=== PATIENT | male | born 1975 | race Caucasian/White ===

== ENCOUNTER 2018-05-11 07:50 | Observation (INO) ==
[2018-05-11] MEDS ORDERED: Aspirin 81 MG TAB.CHEW PO ONE (07:56)
[2018-05-11] MEDS ORDERED: 0.9 % Sodium Chloride 500 ML IVC ONE (07:56)
--- NOTE | 2018-05-11 08:02 | Emergency Department Note ---
Disposition Clinical Impression: Chest pain Qualifiers: Chest pain type: unspecified Qualified Code(s): R07.9 - Chest pain, unspecified Disposition: Admitted As Inpatient Referrals: Richmond Agurire MD [Primary Care Provider] - Chest Pain HPI - General Stated Complaint: CP Time Seen by Provider: 05/11/18 07:51 Source: patient Mode of arrival: ambulatory Limitations: no limitations Vital Signs Reviewed: Yes Nursing Notes Reviewed: Yes - History of Present Illness HPI Narrative: 42-year-old male with history of hypertension, diabetes, pericarditis in the past presents for evaluation of chest pain. Patient states symptom onset was approximately 3:00 this morning. States the pain woke him up from sleep. Noted to be a tightness across the anterior part of his chest with radiation to his back. Patient denies any neck or arm pain. States it is similar pain from when he had pericarditis 4 years ago of unknown etiology. Patient for some shortness of breath and some diaphoresis but no nausea or vomiting. Patient denies any abdominal pain. Reports no fevers does have a nonproductive cough. Patient states pain is not worse with deep inspiration or position. Patient took an aspirin prior to arrival. Patient denies any history of blood clots in his lungs are's legs. Patient denies any history of recent travel. Denies any active cancers. Denies any history of heart attacks. - Related Data Home Medications Medication Instructions Recorded Confirmed Dextroamphetamine/Amphetamine 30 mg PO BID 05/11/18 05/11/18 [Adderall 30 mg Tablet] Emtricitabine/Tenofovir [Truvada 1 tab PO DAILY 05/11/18 05/11/18 200 mg-300 mg Tablet] Ergocalciferol (VITAMIN D2) 50,000 unit PO 2XW 05/11/18 05/11/18 [Vitamin D2] Escitalopram [Lexapro] 10 mg PO DAILY 05/11/18 05/11/18 Esomeprazole Magnesium [Nexium] 40 mg PO DAILY 05/11/18 05/11/18 Levothyroxine Sodium [Levoxyl] 100 mcg PO DAILY 05/11/18 05/11/18 Liraglutide [Victoza 2-Rolando] 1.2 mg SQ DAILY 05/11/18 05/11/18 Lisinopril [Zestril] 20 mg PO DAILY 05/11/18 05/11/18 Metformin HCl [Glucophage Xr] 750 mg PO QPM 05/11/18 05/11/18 Oxycodone HCl/Acetaminophen 1 tab PO Q6H PRN 05/11/18 05/11/18 [Percocet 10-325 mg Tablet] Testosterone Cypionate 100 mg IM Q2W 05/11/18 05/11/18 [Depo-Testosterone] Tizanidine HCl 4 mg PO DAILY 05/11/18 05/11/18 Zolpidem [Ambien] 10 mg PO HS PRN 05/11/18 05/11/18 Allergies Allergy/AdvReac Type Severity Reaction Status Date / Time Oxycodone [From OxyContin] AdvReac makes skin Verified 05/11/18 09:38 crawl All systems ED: reviewed and negative except as stated. Constitutional: Denies: fever Cardiovascular: Reports: chest pain Respiratory: Reports: cough, dyspnea Gastrointestinal: Denies: nausea, vomiting Physical Exam - General Limitations: no limitations General appearance: alert, in no apparent distress - Head Head exam: atraumatic, normocephalic, normal inspection - Eye Eye exam: Present: normal appearance, PERRL, EOMI - ENT ENT exam: normal exam, normal oropharynx, mucous membranes moist - Neck Neck exam: Present: normal inspection - Chest Chest inspection: Present: normal inspection, symmetric chest wall rise - Respiratory Respiratory exam: Present: normal lung sounds bilaterally. Absent: respiratory distress - Cardiovascular Cardiovascular exam: Present: regular rate, normal rhythm. Absent: systolic murmur - Abdominal Exam Abdominal exam: Present: soft, Non-Tender - Extremities Exam Extremities exam: Present: normal inspection, pedal edema (trace) - Back Exam Back exam: Present: normal inspection - Neurological Exam Neurological exam: Present: alert, oriented X3 - Skin Skin exam: Present: warm, dry, intact, normal color Course Course Narrative: Patient seen and examined. Patient complaining of chest pain. Does have risk factors for ACS. Patient will get cardiopulmonary evaluation EKG, chest x-ray troponin. Patient also get basic labs. - Reevaluation(s) Reevaluation #1: Bedside ultrasound shows trace pericardial fluid. Time: 08:14 Reevaluation #2: Pain improved after nitroglycerin Time: 08:47 Reevaluation #3: Patient seen and examined. Patient denies any need for pain medication. States he is feeling better. Patient does have chest pain associated back pain. Awaiting CT of the chest. Time: 08:56 Vital Signs Temperature 99.0 F 05/11/18 08:04 Pulse Rate 72 05/11/18 08:04 Respiratory Rate 18 05/11/18 08:04 Blood Pressure 127/82 05/11/18 08:04 O2 Sat by Pulse Oximetry 94 05/11/18 08:04 Temperature 99.0 F 05/11/18 08:04 Pulse Rate 76 05/11/18 09:38 Respiratory Rate 18 05/11/18 09:38 Blood Pressure 119/75 05/11/18 09:38 O2 Sat by Pulse Oximetry 97 05/11/18 09:38 Oxygen Delivery Oxygen Delivery Room Air Chest Pain - MDM Narrative Medical decision making narrative: 42-year-old male who presents for evaluation of chest pain. During the course the patient's ED evaluation the patient had no EKG changes however the patient does have risk factors for ACS and did respond to nitroglycerin. Patient also has a history of pericarditis with similar pain however cannot necessarily rule out ACS. Given the patient's complaint of dyspnea as well as back pain a CT of the chest was obtained. Patient would benefit from inpatient admission and further evaluation of the etiology of the patient's chest pain. Review the patient's medical records shows the patient has not had any recent provocative testing or evaluation of ACS. - Lab Data Result diagrams: 05/11/18 08:24 05/11/18 08:24 Lab Results 05/11/18 05/11/18 05/11/18 Range/Units 08:24 08:24 08:24 WBC 9.7 (4.3-11.1) K/mcL RBC 5.44 (4.19-5.50) M/mcL Hgb 16.5 (12.9-16.9) g/dL Hct 48.4 (37.5-50.1) % MCV 89.0 (83.0-100.0) fL MCH 30.3 (28.0-33.3) pg MCHC 34.1 (31.6-35.5) g/dL RDW 11.9 (11.5-14.5) % Plt Count 193 (140-400) K/mcL MPV 11.2 (9.4-12.4) fL Immature Gran % 0.3 (0-4) % Seg Neutrophils % 55.4 % Lymphocytes % 36.7 % Monocytes % 6.0 % Eosinophils % 1.2 % Basophils % 0.4 % Neutrophils # 5.4 (1.6-8.9) K/mcL Lymphocytes # 3.6 (0.6-4.6) K/mcL Monocytes # 0.6 (0.0-1.3) K/mcL Eosinophils # 0.1 (0.0-0.6) K/mcL Basophils # 0.0 (0.0-0.2) K/mcL PT 9.8 (9.4-12.1) Seconds INR 0.9 Sodium (136-145) mEq/L Potassium (3.5-5.1) mEq/L Chloride (98-107) mEq/L Carbon Dioxide (23-29) mEq/L BUN (6-20) mg/dL Creatinine (0.70-1.30) mg/dL Est GFR ( Amer) (> 60) Est GFR (Non-Af Amer) (> 60) BUN/Creatinine Ratio (6-26) Glucose (70-105) mg/dL Calculated Osmolality (280-300) Calcium (8.6-10.3) mg/dL Troponin I (< 0.04) ng/mL B-Natriuretic Peptide 10 (Less than 100) pg/mL Lipase (11-82) Units/L // Range/Units 08:24 WBC (4.3-11.1) K/mcL RBC (4.19-5.50) M/mcL Hgb (12.9-16.9) g/dL Hct (37.5-50.1) % MCV (83.0-100.0) fL MCH (28.0-33.3) pg MCHC (31.6-35.5) g/dL RDW (11.5-14.5) % Plt Count (140-400) K/mcL MPV (9.4-12.4) fL Immature Gran % (0-4) % Seg Neutrophils % % Lymphocytes % % Monocytes % % Eosinophils % % Basophils % % Neutrophils # (1.6-8.9) K/mcL Lymphocytes # (0.6-4.6) K/mcL Monocytes # (0.0-1.3) K/mcL Eosinophils # (0.0-0.6) K/mcL Basophils # (0.0-0.2) K/mcL PT (9.4-12.1) Seconds INR Sodium 139 (136-145) mEq/L Potassium 4.0 (3.5-5.1) mEq/L Chloride 105 (98-107) mEq/L Carbon Dioxide 24 (23-29) mEq/L BUN 25 H (6-20) mg/dL Creatinine 0.86 (0.70-1.30) mg/dL Est GFR ( Amer) > 60 (> 60) Est GFR (Non-Af Amer) > 60 (> 60) BUN/Creatinine Ratio 29 H (6-26) Glucose 146 H (70-105) mg/dL Calculated Osmolality 295 (280-300) Calcium 9.2 (8.6-10.3) mg/dL Troponin I < 0.03 (< 0.04) ng/mL B-Natriuretic Peptide (Less than 100) pg/mL Lipase 24 (11-82) Units/L - Radiology Data Radiology results reviewed: Yes I reviewed the patient's radiology results. - EKG Data EKG attestation: Yes I reviewed and interpreted this EKG. EKG shows normal: sinus rhythm Rate: normal Rhythm: NSR [place]/QRS: normal Q waves: aVR Interpretation: no acute changes, unchanged when compared to prior tracing (date ) (05/2015) Heart Score - Score History: Highly Suspicious EKG: Normal Age: Less than 45 Risk Factors: Equal/Greater than 3 risk factor or history of atherosclerotic disease Troponin: Less than normal limit HEART Score Total: 4 S.B.A.RJennifer - S.B.A.RJennifer Situation: Demographics Background: Presenting Complaint Assessment: Vital Signs, Course and respsone to treatment, Patient/Family Expectation Recommendation: Barrier(s) to disposition, Recommendation based on pending studies, treatments, or consults S.B.A.RJennifer Report Given to: Dr. Joel [email or web address].ANgozi Repor Time: 10:05
[2018-05-11] MEDS ORDERED: Isovue-370 500 ML INFUS..BTL IV ONE ×2 (08:21→09:37)
[2018-05-11] MEDS: Nitroglycerin 0.4 MG TAB.SUBL SL ONE ×2 (08:28→08:40)
[2018-05-11 08:53] LABS: Basophils % 0.4 %; Eosinophils # 0.1 K/mcL (0.0-0.6); Eosinophils % 1.2 %; Hematocrit 48.4 % (37.5-50.1); Hemoglobin 16.5 g/dL (12.9-16.9); Immature Granulocytes % 0.3 % (0-4); Lymphocytes # 3.6 K/mcL (0.6-4.6); Lymphocytes % 36.7 %; Mean Corpuscular HGB Conc 34.1 g/dL (31.6-35.5); Mean Corpuscular Hemoglobin 30.3 pg (28.0-33.3); Mean Platelet Volume 11.2 fL (9.4-12.4); Monocytes # 0.6 K/mcL (0.0-1.3); Neutrophils # 5.4 K/mcL (1.6-8.9); Platelet Count 193 K/mcL (140-400); Red Blood Count 5.44 M/mcL (4.19-5.50); Red Cell Distribution Width 11.9 % (11.5-14.5); Segmented Neutrophils % 55.4 %
[2018-05-11 09:03] LABS: INR 0.9; Prothrombin Time 9.8 Seconds (9.4-12.1)
[2018-05-11 09:15] LABS: BUN/Creatinine Ratio 29 (6-26); Blood Urea Nitrogen 25 mg/dL (6-20); Calcium 9.2 mg/dL (8.6-10.3); Carbon Dioxide 24 mEq/L (23-29); Chloride 105 mEq/L (98-107); Glucose 146 mg/dL (70-105); Lipase 24 Units/L (11-82); Osmolality,Calculated 295 (280-300); Sodium 139 mEq/L (136-145); Troponin I < 0.03 ng/mL (< 0.04); eGFR For African Americans > 60 (> 60); eGFR For Non-African Americans > 60 (> 60)
--- NOTE | 2018-05-11 09:47 | Emergency Department Note ---
Disposition Clinical Impression: Chest pain Qualifiers: Chest pain type: unspecified Qualified Code(s): R07.9 - Chest pain, unspecified Disposition: Admitted As Inpatient Referrals: Richmond Aguirre MD [Primary Care Provider] - General Adult [facility] - General Chief complaint: ED Chest Pain Stated complaint: CP Time Seen by Provider: 05/11/18 07:51 Source: patient Mode of arrival: ambulatory Limitations: no limitations - History of Present Illness Pain Scale: 5 - Related Data Home Medications Medication Instructions Recorded Confirmed Dextroamphetamine/Amphetamine 30 mg PO BID 05/11/18 05/11/18 [Adderall 30 mg Tablet] Emtricitabine/Tenofovir [Truvada 1 tab PO DAILY 05/11/18 05/11/18 200 mg-300 mg Tablet] Ergocalciferol (VITAMIN D2) 50,000 unit PO 2XW 05/11/18 05/11/18 [Vitamin D2] Escitalopram [Lexapro] 10 mg PO DAILY 05/11/18 05/11/18 Esomeprazole Magnesium [Nexium] 40 mg PO DAILY 05/11/18 05/11/18 Levothyroxine Sodium [Levoxyl] 100 mcg PO DAILY 05/11/18 05/11/18 Liraglutide [Victoza 2-Rolando] 1.2 mg SQ DAILY 05/11/18 05/11/18 Lisinopril [Zestril] 20 mg PO DAILY 05/11/18 05/11/18 Metformin HCl [Glucophage Xr] 750 mg PO QPM 05/11/18 05/11/18 Oxycodone HCl/Acetaminophen 1 tab PO Q6H PRN 05/11/18 05/11/18 [Percocet 10-325 mg Tablet] Testosterone Cypionate 100 mg IM Q2W 05/11/18 05/11/18 [Depo-Testosterone] Tizanidine HCl 4 mg PO DAILY 05/11/18 05/11/18 Zolpidem [Ambien] 10 mg PO HS PRN 05/11/18 05/11/18 Allergies Allergy/AdvReac Type Severity Reaction Status Date / Time Oxycodone [From OxyContin] AdvReac makes skin Verified 05/11/18 09:38 crawl Constitutional: Denies: fever Cardiovascular: Reports: chest pain Respiratory: Reports: cough, dyspnea Gastrointestinal: Denies: nausea, vomiting Past Medical History - Past Medical History Medical history: Reports: diabetes, hypertension Psychiatric history: Reports: no psych history - Social History Smoking Status: Never smoker Alcohol use: Reports: none Drug use: Reports: none Physical Exam - General Limitations: no limitations General appearance: alert, in no apparent distress Course Vital Signs Temperature 99.0 F 05/11/18 08:04 Pulse Rate 72 05/11/18 08:04 Respiratory Rate 18 05/11/18 08:04 Blood Pressure 127/82 05/11/18 08:04 O2 Sat by Pulse Oximetry 94 05/11/18 08:04 Temperature 99.0 F 05/11/18 08:04 Pulse Rate 76 05/11/18 09:38 Respiratory Rate 18 05/11/18 09:38 Blood Pressure 119/75 05/11/18 09:38 O2 Sat by Pulse Oximetry 97 05/11/18 09:38 Oxygen Delivery Oxygen Delivery Room Air Medical Decision Making - Lab Data Result diagrams: 05/11/18 08:24 05/11/18 08:24 Lab Results 05/11/18 05/11/18 05/11/18 Range/Units 08:24 08:24 08:24 WBC 9.7 (4.3-11.1) K/mcL RBC 5.44 (4.19-5.50) M/mcL Hgb 16.5 (12.9-16.9) g/dL Hct 48.4 (37.5-50.1) % MCV 89.0 (83.0-100.0) fL MCH 30.3 (28.0-33.3) pg MCHC 34.1 (31.6-35.5) g/dL RDW 11.9 (11.5-14.5) % Plt Count 193 (140-400) K/mcL MPV 11.2 (9.4-12.4) fL Immature Gran % 0.3 (0-4) % Seg Neutrophils % 55.4 % Lymphocytes % 36.7 % Monocytes % 6.0 % Eosinophils % 1.2 % Basophils % 0.4 % Neutrophils # 5.4 (1.6-8.9) K/mcL Lymphocytes # 3.6 (0.6-4.6) K/mcL Monocytes # 0.6 (0.0-1.3) K/mcL Eosinophils # 0.1 (0.0-0.6) K/mcL Basophils # 0.0 (0.0-0.2) K/mcL PT 9.8 (9.4-12.1) Seconds INR 0.9 Sodium (136-145) mEq/L Potassium (3.5-5.1) mEq/L Chloride (98-107) mEq/L Carbon Dioxide (23-29) mEq/L BUN (6-20) mg/dL Creatinine (0.70-1.30) mg/dL Est GFR ( Amer) (> 60) Est GFR (Non-Af Amer) (> 60) BUN/Creatinine Ratio (6-26) Glucose (70-105) mg/dL Calculated Osmolality (280-300) Calcium (8.6-10.3) mg/dL Troponin I (< 0.04) ng/mL B-Natriuretic Peptide 10 (Less than 100) pg/mL Lipase (11-82) Units/L 07//18 Range/Units 08:24 WBC (4.3-11.1) K/mcL RBC (4.19-5.50) M/mcL Hgb (12.9-16.9) g/dL Hct (37.5-50.1) % MCV (83.0-100.0) fL MCH (28.0-33.3) pg MCHC (31.6-35.5) g/dL RDW (11.5-14.5) % Plt Count (140-400) K/mcL MPV (9.4-12.4) fL Immature Gran % (0-4) % Seg Neutrophils % % Lymphocytes % % Monocytes % % Eosinophils % % Basophils % % Neutrophils # (1.6-8.9) K/mcL Lymphocytes # (0.6-4.6) K/mcL Monocytes # (0.0-1.3) K/mcL Eosinophils # (0.0-0.6) K/mcL Basophils # (0.0-0.2) K/mcL PT (9.4-12.1) Seconds INR Sodium 139 (136-145) mEq/L Potassium 4.0 (3.5-5.1) mEq/L Chloride 105 (98-107) mEq/L Carbon Dioxide 24 (23-29) mEq/L BUN 25 H (6-20) mg/dL Creatinine 0.86 (0.70-1.30) mg/dL Est GFR ( Amer) > 60 (> 60) Est GFR (Non-Af Amer) > 60 (> 60) BUN/Creatinine Ratio 29 H (6-26) Glucose 146 H (70-105) mg/dL Calculated Osmolality 295 (280-300) Calcium 9.2 (8.6-10.3) mg/dL Troponin I < 0.03 (< 0.04) ng/mL B-Natriuretic Peptide (Less than 100) pg/mL Lipase 24 (11-82) Units/L Attestation Statement - Attestation Attestation: I examined this patient and my medical decision-making was reviewed with the Resident Physician. I agree with the documented findings, disposition and treatment plan as described except to the extent set forth below. 42 year old male presntse to the ED with complanits of chest pain midsternal simliar to his episodes of pericarditis in the past. Swapna has mulitple reisk factors for ACS. WEw ill do a cardiopulmonary workup with CTA to rule out PE and US for pericarditis workup and then olive admit to medicine.
[2018-05-11] MEDS ORDERED: Naloxone 0.4 MG/ML INJ IVP PRN (10:04)
[2018-05-11] MEDS ORDERED: *HR* Dextrose 50 % in Water (Syg) 50 ML SYRINGE IVP PRN (10:15)
[2018-05-11] MEDS ORDERED: Dextrose Gel 15 GM/37.5 ML TUBE PO PRN ×2 (10:15)
[2018-05-11] MEDS ORDERED: NON-FORMULARY MEDICATION 1 EACH EACH (Testosterone Cypionate [Depo-Testosterone] 100 MG) IM SCH (10:15)
[2018-05-11] MEDS ORDERED: D5% in Water 1,000 ML IVC PRN (10:15)
[2018-05-11 10:25] LABS: Chol/HDL Ratio 5.6 (0-4.9); Cholesterol 175 mg/dL (< 200); HDL Cholesterol 31 mg/dL (40-59); LDL Cholesterol,Calculated 104 mg/dL (0-99); Triglycerides 200 mg/dL (< 150)
[2018-05-11] MEDS ORDERED: OXYCODONE Oral CONC 10 MG/0.5 ML ORAL.SYG SL PRN (11:01)
--- NOTE | 2018-05-11 11:06 | Internal Med History&Physical ---
Date of Encounter: 05/11/18 Time of Encounter: 11:00 Internal Medicine - H&P: HPI Chief complaint: Chest pain History of present illness: Mr. 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 Patient describes the chest pain as a tightness that is midsternal aggaravated by changes in position and radiating to the back. Pain was mildly relieved by nitroglycerin in the ER. he denies any fevers, chills. He says pain was 8/10 when he arrived but is now 5/10. He had a father who ad a heart attack at age 46. CXR [address] angio done in the Er showed no acute abnormality Past Med Surg Social Fam HX - Past Medical History Medical history: diabetes, hypertension Psychiatric history: no psych history - Social History Smoking Status: Never smoker Alcohol use: none Drug use: none - Family History Mother Living Status: Hx Family Cancer: Yes Hx Family Endocrine Disorder: Yes (diabetes) Father Hx Family Cardiac Disorders: Yes Hx Family Endocrine Disorder: Yes (diabetes) Internal Medicine - H&P: Meds Dextroamphetamine/Amphetamine [Adderall 30 mg Tablet] 30 mg PO BID 05/11/18 [ History] Emtricitabine/Tenofovir [Truvada 200 mg-300 mg Tablet] 1 tab PO DAILY 05/11/18 [ History] Ergocalciferol (VITAMIN D2) [Vitamin D2] 50,000 unit PO 2XW 05/11/18 [History] Escitalopram [Lexapro] 10 mg PO DAILY 05/11/18 [History] Esomeprazole Magnesium [Nexium] 40 mg PO DAILY 05/11/18 [History] Levothyroxine Sodium [Levoxyl] 100 mcg PO DAILY 05/11/18 [History] Liraglutide [Victoza 2-Rolando] 1.2 mg SQ DAILY 05/11/18 [History] Lisinopril [Zestril] 20 mg PO DAILY 05/11/18 [History] Metformin HCl [Glucophage Xr] 750 mg PO QPM 05/11/18 [History] Oxycodone HCl/Acetaminophen [Percocet 10-325 mg Tablet] 1 tab PO Q6H PRN [History] Testosterone Cypionate [Depo-Testosterone] 100 mg IM Q2W 05/11/18 [History] Tizanidine HCl 4 mg PO DAILY 05/11/18 [History] Zolpidem [Ambien] 10 mg PO HS PRN 05/11/18 [History] 3 Allergy/AdvReac Type Severity Reaction Status Date / Time Oxycodone [From OxyContin] AdvReac makes skin Verified 05/11/18 09:38 crawl All Systems PM: A 10-system review of systems was performed and is negative for pertinent findings except as documented above in the HPI. - Constitutional Constitutional: no chills, no fever(s), no night sweats - EENT Eyes: no change in vision, no discharge, no pain, no photophobia Ears: no ear discharge, no ear pain, no tinnitus Nose, mouth and throat: no dysphagia, no nasal discharge, no neck pain, no sore throat - Cardiovascular Cardiovascular ROS IM: chest pain, no diaphoresis, no dyspnea, no lightheadedness, no palpitations, no syncope - Respiratory Respiratory: no cough, no dyspnea, no wheezing, no excessive phlegm production - Gastrointestinal Gastrointestinal: no abdominal pain, no diarrhea, no hematemesis, no hematochezia, no melena, no nausea, no vomiting - Musculoskeletal Musculoskeletal ROS IM: no numbness, no tingling - Integumentary Integumentary IM: no rash, no unusual bruising - Neurological Neurological ROS: no confusion, no convulsions, no focal weakness, no numbness, no tingling, no tremor(s) - Hematologic/Lymphatic Hematologic/Lymphatic: no easy bruising - Constitutional Vitals: Temp Pulse Resp BP Pulse Ox 99.0 F 76 18 116/63 97 05/11/18 08:04 05/11/18 09:38 05/11/18 10:23 05/11/18 10:23 05/11/18 09:38 Exam: Morbidly obese - Head Head exam: Present: atraumatic, normocephalic - Eye Eye exam: Present: PERRL, conjuntiva pink, sclera anicteric Pupils: Present: PERRL - Neck Neck exam general surgery: Present: supple, trachea midline. Absent: lymphadenopathy - Respiratory Respiratory exam: Present: CTAB. Absent: accessory muscle use, rales, rhonchi, wheezes - Cardiovascular Cardiovascular exam: Present: RRR, +S1, +S2. Absent: diastolic murmur, gallop, rubs, systolic murmur - GI/Abdominal GI/Abdominal exam: Present: normal bowel sounds, soft, no peritoneal signs. Absent: distended, tenderness - Extremities Exam Extremities exam: Present: warm, radial pulses palpable and symmetrical. Absent : calf tenderness, cyanotic, pedal edema - Neurological Exam Neurological exam: Present: CN II-XII intact, oriented X3, no focal deficits. Absent: pronater drift, facial droop, speech deficit - Skin Skin exam: Present: dry, intact Internal Med - H&P Results - Labs CBC & Chem 7: 05/11/18 08:24 05/11/18 08:24 - Assessment and plan (1) Chest pain Current Visit: Yes Status: Acute Assessment and plan: Chest pain r/o MS. trend troponins. Obtain 2d echo and stress test. pt has multiple risk factors including diabetes, htn, obesity, dyslipidemia, family history Qualifiers: Chest pain type: unspecified Qualified Code(s): R07.9 - Chest pain, unspecified (2) Acute pericarditis Current Visit: Yes Status: Acute Assessment and plan: Query pericarditis. EKG is not classic for pericarditis, but patient says pain is similar to previous episodes of pericarditis. Start on colchicine and ibuprofen. F/U echo Qualifiers: Qualified Code(s): I30.9 - Acute pericarditis, unspecified (3) HIV (human immunodeficiency virus infection) Current Visit: Yes Status: Acute Assessment and plan: Continue truvada (4) Diabetes Current Visit: Yes Status: Acute Assessment and plan: Continue insulin Qualifiers: Qualified Code(s): E11.9 - Type 2 diabetes mellitus without complications (5) Hypertension Current Visit: Yes Status: Acute Assessment and plan: Continue lisnopril Qualifiers: Qualified Code(s): I10 - Essential (primary) hypertension (6) DVT prophylaxis Current Visit: Yes Status: Acute Assessment and plan: sc heparin - Time Spent With Patient Total time spent is greater than 50% in coordination of care (as documented) at patient's floor/unit and/or counseling patient:
[2018-05-11] MEDS: Insulin LISPRO 300 UNITS/3 ML VIAL SQ SCH ×2 (11:36→17:15)
[2018-05-11] MEDS: Ibuprofen 600 MG TABLET PO SCH ×2 (12:17→17:46)
[2018-05-11] MEDS: Colchicine 0.6 MG TABLET PO SCH ×2 (12:24→20:48)
[2018-05-11] MEDS: *HR* Heparin 5,000 UNIT/ML VIAL SQ SCH (17:46)
[2018-05-11] MEDS ORDERED: *HR* Heparin 5,000 UNIT/ML VIAL SQ SCH (18:00)
[2018-05-11] MEDS: tiZANidine 4 MG TABLET PO SCH (20:48)
[2018-05-11] MEDS: *HR* OxyCODONE/APAP 10/325 TABLET PO PRN (20:52)
[2018-05-12 01:44] LABS: Basophils % 0.4 %; Eosinophils # 0.2 K/mcL (0.0-0.6); Eosinophils % 1.7 %; Hematocrit 44.1 % (37.5-50.1); Immature Granulocytes % 0.9 % (0-4); Immature Platelets 7.8 % (1.1-6.1); Lymphocytes # 4.2 K/mcL (0.6-4.6); Lymphocytes % 46.3 %; Mean Corpuscular Hemoglobin 30.6 pg (28.0-33.3); Monocytes # 0.6 K/mcL (0.0-1.3); Monocytes % 6.8 %; Neutrophils # 3.9 K/mcL (1.6-8.9); Platelet Count 190 K/mcL (140-400); Red Cell Distribution Width 11.9 % (11.5-14.5); Segmented Neutrophils % 43.9 %
[2018-05-12 02:10] LABS: BUN/Creatinine Ratio 26 (6-26); Blood Urea Nitrogen 24 mg/dL (6-20); Calcium 8.9 mg/dL (8.6-10.3); Carbon Dioxide 28 mEq/L (23-29); Chloride 104 mEq/L (98-107); Glucose 117 mg/dL (70-105); Osmolality,Calculated 289 (280-300); Phosphorous 4.1 mg/dL (2.7-4.5); Potassium 4.3 mEq/L (3.5-5.1); Sodium 137 mEq/L (136-145); eGFR For African Americans > 60 (> 60); eGFR For Non-African Americans > 60 (> 60)
[2018-05-12] MEDS: *HR* Heparin 5,000 UNIT/ML VIAL SQ SCH ×2 (05:24→18:07)
[2018-05-12] MEDS: Insulin LISPRO 300 UNITS/3 ML VIAL SQ SCH ×4 (07:52→22:59)
[2018-05-12] MEDS: Ibuprofen 600 MG TABLET PO SCH (08:03)
[2018-05-12] MEDS: Colchicine 0.6 MG TABLET PO SCH (08:03)
[2018-05-12] MEDS: Lisinopril 20 MG TABLET PO SCH (08:03)
[2018-05-12] MEDS: Aspirin 81 MG TAB.CHEW PO SCH (08:03)
[2018-05-12] MEDS ORDERED: tiZANidine 4 MG TABLET PO SCH (09:00)
[2018-05-12] MEDS: (Liraglutide [Victoza 2-Pak] 1.2 MG) SQ SCH (09:34)
[2018-05-12] MEDS ORDERED: Mag Hydrox/Al Hydrox/Simeth 30 ML UDC PO PRN (09:54)
--- NOTE | 2018-05-12 10:05 | Internal Med Progress Note ---
Date of Encounter: 05/12/18 Time of Encounter: 09:59 - Assessment and plan (1) Chest pain Current Visit: Yes Status: Acute Assessment and plan: atypical, negative trop, TTE did not show pericardial effusion.CTA is negative for PE pending stress test due to multiple risk factors Qualifiers: Chest pain type: unspecified Qualified Code(s): R07.9 - Chest pain, unspecified (2) Hyperlipidemia Current Visit: Yes Status: Acute Qualifiers: Hyperlipidemia type: mixed hyperlipidemia Qualified Code(s): E78.2 - Mixed hyperlipidemia (3) Morbid obesity Current Visit: Yes Status: Chronic Assessment and plan: life style modification discussed (4) Acute pericarditis Current Visit: Yes Status: Acute Assessment and plan: ruled out, TTE did not show pericardial effusion, Qualifiers: Qualified Code(s): I30.9 - Acute pericarditis, unspecified (5) HIV (human immunodeficiency virus infection) Current Visit: Yes Status: Chronic Assessment and plan: continue truvada (6) Diabetes Current Visit: Yes Status: Chronic Qualifiers: Diabetes mellitus type: type 2 Diabetes mellitus senior living insulin 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 Diabetes mellitus complication status: without complication Qualified Code(s): E11.9 - Type 2 diabetes mellitus without complications; Z79.4 - termite inspector (current) use of insulin (7) Hypertension Current Visit: Yes Status: Chronic Assessment and plan: continue lisinopril Qualifiers: Hypertension type: essential hypertension Qualified Code(s): I10 - Essential (primary) hypertension (8) DVT prophylaxis Current Visit: Yes Status: Acute Assessment and plan: heparin SC - Time Spent With Patient Total time spent is greater than 50% in coordination of care (as documented) at patient's floor/unit and/or counseling patient: 25 - 35 minutes - Subjective Interval history: Mr. 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 Patient describes the chest pain as a tightness that is midsternal aggaravated by changes in position and radiating to the back. Pain was mildly relieved by nitroglycerin in the ER. he denies any fevers, chills. He says pain was 8/10 when he was in ER. He had a father who ad a heart attack at age 46. CXR [address] angio done in the Er showed no acute abnormality. TTE on showed EF 60%, mild MR. trop < 0.03 times 3. hyperlipidemia with low HDL. he still has 3/10 chest pressure, actually Maalox helps ;some as well. he is on omeprazole pending stress test, if stress test is negative then diskcharge on maalox and omeprazole - Constitutional Vitals: Temp Pulse Resp BP Pulse Ox 98.1 F 80 17 110/76 95 05/12/18 06:50 05/12/18 08:06 05/12/18 06:50 05/12/18 06:50 05/12/18 06:50 General appearance: Present: A&O X 3, obese, answers questions appropriately Exam: CONSTITUTIONAL: patient appears as an age appropriate male in no acute distress. EYES Clear sclerae, bilateral pupils are equal, reactive to light. EMOI. RESPIRATORY: No accessory muscle use, bilateral clear to auscultation, no wheezing, no crackles/rales. CARDIOVASCULAR: Regular heart rate, normal S1 and S2, no murmurs GASTROINTESTINAL: bowel sounds present, soft, no tenderness. MUSCULOSKELETAL: Joints in normal range of motion, no clubbing, no edema, no cyanosis. Bilateral peripheral pulses 2+. NEUROLOGIC: CN II to XII are grossly intact, no focal neurological deficit. Internal Medicine: Result - Labs CBC & Chem 7: 05/12/18 01:20 05/12/18 01:20 Labs: Short CBC 05/12/18 Range/Units 01:20 WBC 9.0 (4.3-11.1) K/mcL Hgb 15.0 D (12.9-16.9) g/dL Hct 44.1 (37.5-50.1) % Plt Count 190 (140-400) K/mcL Neutrophils # 3.9 (1.6-8.9) K/mcL BMP 05/12/18 01:20 Sodium 137 Potassium 4.3 Chloride 104 Carbon Dioxide 28 BUN 24 H Creatinine 0.94 Glucose 117 H Calcium 8.9 Cardiac Enzymes 05/11/18 05/11/18 Range/Units 11:58 17:44 Troponin I < 0.03 < 0.03 (< 0.04) ng/mL - ABG Interpretation ABG results: PT/INR, D-dimer PT 9.8 Seconds (9.4-12.1) 05/11/18 08:24 Consult Discharge Plan - Plan
[2018-05-12] MEDS: Ibuprofen 800 MG TABLET PO SCH (18:07)
[2018-05-12] MEDS ORDERED: D5% in Water 1,000 ML IVC PRN (19:29)
[2018-05-12] MEDS ORDERED: *HR* Dextrose 50 % in Water (Syg) 50 ML SYRINGE IVP PRN (19:29)
[2018-05-12] MEDS ORDERED: Dextrose Gel 15 GM/37.5 ML TUBE PO PRN ×2 (19:29)
[2018-05-12] MEDS: tiZANidine 4 MG TABLET PO SCH (20:02)
[2018-05-12] MEDS: *HR* OxyCODONE/APAP 10/325 TABLET PO PRN (23:02)
[2018-05-13] MEDS: *HR* Heparin 5,000 UNIT/ML VIAL SQ SCH ×2 (05:38→17:42)
[2018-05-13] MEDS ORDERED: Regadenoson 0.4 MG/5 ML SYRINGE IVP ONE (06:52)
[2018-05-13] MEDS: Ibuprofen 800 MG TABLET PO SCH ×3 (08:00→17:42)
[2018-05-13] MEDS: Insulin LISPRO 300 UNITS/3 ML VIAL SQ SCH ×4 (09:35→22:07)
[2018-05-13] MEDS: Lisinopril 20 MG TABLET PO SCH (11:03)
[2018-05-13] MEDS: (Liraglutide [Victoza 2-Pak] 1.2 MG) SQ SCH (11:25)
[2018-05-13] MEDS: Aspirin 81 MG TAB.CHEW PO SCH (11:25)
--- NOTE | 2018-05-13 15:40 | Electrocardiograph Report ---
[address] [address] Test Date: 2018-05-11 Pat Name: Severo Peñaloza Department: 102 Room: [facility] Gender: M [employer]: [facility] : 1975 Requested By: Sascha Ku Order Number: [id number] Reading MD: Art Vicente Measurements Intervals [place] Rate: 82 P: 42 NE: 179 QRS: 15 QRSD: 110 T: 46 QT: 348 QTc: 386 Interpretive Statements SINUS RHYTHM Electronically Signed On 05-13-2018 15:39:25 EDT by Art Vicente
[2018-05-13] MEDS: tiZANidine 4 MG TABLET PO SCH (22:06)
--- NOTE | 2018-05-14 05:20 | Internal Med Progress Note ---
Date of Encounter: 05/13/18 Time of Encounter: 19:00 - Assessment and plan (1) Chest pain Current Visit: Yes Status: Acute Qualifiers: Chest pain type: unspecified Qualified Code(s): R07.9 - Chest pain, unspecified (2) Acute pericarditis Current Visit: Yes Status: Acute Qualifiers: Qualified Code(s): I30.9 - Acute pericarditis, unspecified (3) Type 2 diabetes mellitus Current Visit: Yes Status: Acute Qualifiers: Diabetes mellitus terminal clerk insulin use: without terminal clerk use Diabetes mellitus complication status: without complication Qualified Code(s): E11.9 - Type 2 diabetes mellitus without complications (4) Hypertension Current Visit: Yes Status: Chronic Qualifiers: Hypertension type: essential hypertension Qualified Code(s): I10 - Essential (primary) hypertension - Time Spent With Patient Total time spent is greater than 50% in coordination of care (as documented) at patient's floor/unit and/or counseling patient: 25 - 35 minutes - Subjective Interval history: .. The patient feels better. His central anterior chest pain is of decreased intensity. It is at 2 points on 10 point scale today. It was 8 points at admission. The patient is the only in nature. It is not worse with the breathing or any other factors. He tells me that the it is similar to the pain he had on 3 occasions, when being diagnosed with acute pericarditis. His last her acute pericarditis was about 3 years ago. It was associated with some pericardial effusion. He had stress test done today. He needs delayed images done tomorrow morning. Denies difficulty breathing, coughing and wheezing. Denies abdominal pain, nausea and vomiting. He has normal urination. OBJECTIVE: .. Skin: Free of rash and discoloration. ENMT: Oral/pharyngeal mucosa is normal in appearance. Eyes: Sclera is white. There is no discharge from eyes. Respiratory: Normal breath sounds; no crackles or wheezes. CV: Heart is regular; no gallop or murmur. GI: Abdomen is soft and not tender. There is no palpable mass or visceromegaly. Neuro: There is no focal deficits. ASSESSMENT AND PLAN: .. Central anterior chest pain. Could represent another episode of acute pericarditis. His troponins are normal. EKG shows normal findings. Echocardiogram shows normal findings. Awaiting stress test results. We will continue ibuprofen at 800 mg by mouth 3 times a day. Type 2 diabetes mellitus. Under control. We will continue diabetic diet and metformin. GERD. Under control. We will continue Prilosec. Disposition: I anticipate his discharge tomorrow after stress test. It may change, if his stress test is positive. - Constitutional Vitals: Temp Pulse Resp BP Pulse Ox 98.4 F 60 14 126/72 99 05/14/18 00:20 05/14/18 00:20 05/14/18 04:31 05/14/18 00:20 05/14/18 04:31 General appearance: Present: A&O X 3, obese, answers questions appropriately Internal Medicine: Result - Labs CBC & Chem 7: 05/12/18 01:20 05/12/18 01:20 - ABG Interpretation ABG results: PT/INR, D-dimer PT 9.8 Seconds (9.4-12.1) 05/11/18 08:24 Consult Discharge Plan - Plan Referrals: Richmond Aguirre MD [Primary Care Provider] -
[2018-05-14] MEDS: *HR* Heparin 5,000 UNIT/ML VIAL SQ SCH (06:06)
[2018-05-14] MEDS ORDERED: Regadenoson 0.4 MG/5 ML SYRINGE IVP ONE (08:39)
[2018-05-14] MEDS: Insulin LISPRO 300 UNITS/3 ML VIAL SQ SCH ×2 (10:48→12:52)
[2018-05-14] MEDS: Aspirin 81 MG TAB.CHEW PO SCH (11:39)
[2018-05-14] MEDS: (Liraglutide [Victoza 2-Pak] 1.2 MG) SQ SCH (11:39)
[2018-05-14] MEDS: Lisinopril 20 MG TABLET PO SCH (11:39)
[2018-05-14 12:04] VITALS: BP 113/80
--- NOTE | 2018-05-14 13:13 | Discharge Summary ---
- NOTES TO OUTPATIENT PROVIDER Notes to Outpatient Provider: Follow up with PCP in 2-3 days after discharge. Discuss starting statin at that time. Follow up with new carpet cutter in 1-2 weeks after discharge. Date of Encounter: 05/14/18 Time of Encounter: 13:11 - Discharge Diagnosis (1) Chest pain Priority: Primary Status: Acute Qualifiers: Chest pain type: unspecified Qualified Code(s): R07.9 - Chest pain, unspecified (2) Acute pericarditis Priority: Secondary Status: Suspected Qualifiers: Pericarditis type: unspecified type Qualified Code(s): I30.9 - Acute pericarditis, unspecified (3) HIV (human immunodeficiency virus infection) Priority: Secondary Status: Chronic (4) Diabetes Priority: Secondary Status: Chronic Qualifiers: Diabetes mellitus type: type 2 Diabetes mellitus petroleum terminal plant operator insulin use: with petroleum terminal plant operator use Diabetes mellitus complication status: without complication Qualified Code(s): E11.9 - Type 2 diabetes mellitus without complications; Z79.4 - oil heaterman (current) use of insulin (5) Hypertension Priority: Secondary Status: Chronic Qualifiers: Hypertension type: essential hypertension Qualified Code(s): I10 - Essential (primary) hypertension (6) DVT prophylaxis Priority: Secondary Status: Acute Hospital course: Mr. Peñaloza is a 42 year old male admitted for chest pain. There was some concern for pericarditis, as he has had this in the past. He was admitted to general medical floor with telemetry. Cardiac enzymes trended negative. ECHO ruled out pericarditis. Pain improved with ibuprofen and maalox. Stress test was performed and showed no ischemia or infarct. Chest pain is greatly improved today. He states that he needs a new carpet cutter. We will set up appointment with new carpet cutter in 1-2 weeks after discharge. He will follow up with PCP in 2-3 days after discharge. Discussion to start statin can be had at that time. Patient has met maximum benefit of this hospitalization and will be discharged home in stable condition. Discharge discussed with: patient, nurse - Time Spent with Patient Total time spent providing and/or coordinating discharge services: Less than 30 minutes - Discharge Medications Prescriptions: Aspirin 81 mg PO DAILY 7 Days #7 tab.chew Home Medications: Dextroamphetamine/Amphetamine [Adderall 30 mg Tablet] 30 mg PO BID 05/11/18 [ History] Emtricitabine/Tenofovir [Truvada 200 mg-300 mg Tablet] 1 tab PO DAILY 05/11/18 [ History] Ergocalciferol (VITAMIN D2) [Vitamin D2] 50,000 unit PO 2XW 05/11/18 [History] Escitalopram [Lexapro] 10 mg PO DAILY 05/11/18 [History] Esomeprazole Magnesium [Nexium] 40 mg PO DAILY 05/11/18 [History] Levothyroxine Sodium [Levoxyl] 100 mcg PO DAILY 05/11/18 [History] Liraglutide [Victoza 2-Rolando] 1.2 mg SQ DAILY 05/11/18 [History] Lisinopril [Zestril] 20 mg PO DAILY 05/11/18 [History] Metformin HCl [Glucophage Xr] 750 mg PO QPM 05/11/18 [History] Oxycodone HCl/Acetaminophen [Percocet 10-325 mg Tablet] 1 tab PO Q6H PRN [History] Testosterone Cypionate [Depo-Testosterone] 100 mg IM Q2W 05/11/18 [History] Tizanidine HCl 4 mg PO DAILY 05/11/18 [History] Zolpidem [Ambien] 10 mg PO HS PRN 05/11/18 [History] Aspirin 81 mg PO DAILY 7 Days #7 tab.chew 05/14/18 [Rx] Allergies/Adverse Reactions: 3 Allergy/AdvReac Type Severity Reaction Status Date / Time Oxycodone [From OxyContin] AdvReac makes skin Verified 05/11/18 09:38 crawl Date of admission: 05/11/18 10:16 Primary care physician: Richmond Aguirre MD Discharging clinician: Fermin Smith Anticipated date of discharge: 05/14/18 - Constitutional Vitals: Temp Pulse Resp BP Pulse Ox 98.1 F 50 16 113/80 93 05/14/18 11:30 05/14/18 11:30 05/14/18 11:30 05/14/18 11:30 05/14/18 11:30 General appearance: Present: cooperative, A&O X 3, pleasant, no acute distress, obese, answers questions appropriately - Respiratory Respiratory exam: Present: CTAB. Absent: accessory muscle use, rales, rhonchi, wheezes Additional comments: Normal WOB - Cardiovascular Cardiovascular exam: Present: RRR, +S1, +S2. Absent: diastolic murmur, gallop, rubs, systolic murmur Additional comments: No BLE edema - GI/Abdominal GI/Abdominal exam: Present: normal bowel sounds, soft. Absent: distended, hepatomegaly, mass, splenomegaly, tenderness - Psychiatric Psychiatric exam: Present: normal affect, normal mood. Absent: agitated, anxious, depressed - Skin Skin exam: Present: dry, intact, warm. Absent: cyanosis, rash - Patient Status Disposition: Home, Self-Care Condition: Good Functional capacity at discharge: independent ambulation Overall status at discharge: patient is progressing back to baseline - Discharge Instructions Follow Up With: Richmond Aguirre MD [Primary Care Provider] - Forms: ED Satisfaction Letter Additional Instructions: Follow up with PCP in 2-3 days after discharge. Discuss starting statin at that time. - Diet and Activity Activity: resume usual activities as tolerated Diet: diabetic diet, low fat, low cholesterol, low salt diet, other (Cardiac Diet)
== END 2018-05-14 14:38 | disposition home or self-care (01) ==
LOC: EMEROO 07:50 → 3NENU 07:50 → SUATTDRO 10:16 → 3NENU 10:26
PROVIDERS: ADMIT Student in an Organized Health Care Education/Training Program; ATTEND Hospitalist

== ENCOUNTER 2022-07-19 09:38 | Observation (INO) ==
[2022-07-19 10:33] LABS: Basophils % 0.5 %; Eosinophils # 0.1 K/mcL (0.0-0.6); Eosinophils % 1.3 %; Hematocrit 50.6 % (37.5-50.1); Hemoglobin 17.2 g/dL (12.9-16.9); Immature Granulocytes % 0.2 % (0-4); Lymphocytes # 2.5 K/mcL (0.6-4.6); Lymphocytes % 30.3 %; Mean Corpuscular Hemoglobin 29.7 pg (28.0-33.3); Mean Corpuscular Volume 87.2 fL (83.0-100.0); Mean Platelet Volume 11.4 fL (9.4-12.4); Monocytes # 0.5 K/mcL (0.0-1.3); Neutrophils # 5.1 K/mcL (1.6-8.9); Platelet Count 204 K/mcL (140-400); Red Cell Distribution Width 12.2 % (11.5-14.5); Segmented Neutrophils % 61.7 %; White Blood Count 8.3 K/mcL (4.3-11.1)
[2022-07-19] MEDS ORDERED: Ondansetron 4 MG/2 ML VIAL IVP PRN (10:53)
[2022-07-19 10:54] LABS: BUN/Creatinine Ratio 24 (6-26); Blood Urea Nitrogen 23 mg/dL (6-20); Calcium 9.1 mg/dL (8.6-10.3); Carbon Dioxide 22 mEq/L (23-29); Chloride 101 mEq/L (98-107); Glucose 332 mg/dL (70-105); Osmolality,Calculated 287 (280-300); Potassium 4.5 mEq/L (3.5-5.1); Sodium 130 mEq/L (136-145); Troponin I < 0.03 ng/mL (< 0.04)
[2022-07-19] MEDS: Nitroglycerin 0.4 MG TAB.SUBL SL PRN ×3 (11:08→11:20)
[2022-07-19] MEDS ORDERED: Naloxone 0.4 MG/ML INJ IVP PRN (14:13)
[2022-07-19] MEDS ORDERED: Melatonin 3 MG TABLET PO PRN (14:13)
[2022-07-19] MEDS ORDERED: Acetaminophen 325 MG TABLET PO PRN (16:20)
[2022-07-19] MEDS ORDERED: *HR* HYDROcodone/Acet 5/325 mg TABLET PO PRN (16:20)
[2022-07-19] MEDS ORDERED: Dextrose Gel 15 GM/37.5 ML TUBE PO PRN ×2 (16:21)
[2022-07-19] MEDS ORDERED: *HR* Dextrose 50 % in Water (Syg) 50 ML SYRINGE IVP PRN (16:21)
[2022-07-19] MEDS ORDERED: D5% in Water 1,000 ML IVC PRN (16:21)
[2022-07-19] MEDS ORDERED: Iopamidol - 370 500 ML MLS IVP ONE (16:22)
[2022-07-19] MEDS: Insulin LISPRO 300 UNITS/3 ML VIAL SUBQ SCH ×2 (17:29→20:40)
[2022-07-20 03:14] LABS: Basophils # 0.1 K/mcL (0.0-0.2); Basophils % 0.6 %; Eosinophils # 0.2 K/mcL (0.0-0.6); Eosinophils % 2.1 %; Hematocrit 50.2 % (37.5-50.1); Immature Granulocytes % 0.3 % (0-4); Lymphocytes # 3.3 K/mcL (0.6-4.6); Lymphocytes % 36.8 %; Mean Corpuscular HGB Conc 33.9 g/dL (31.6-35.5); Mean Corpuscular Hemoglobin 29.4 pg (28.0-33.3); Mean Corpuscular Volume 86.9 fL (83.0-100.0); Mean Platelet Volume 11.9 fL (9.4-12.4); Monocytes # 0.6 K/mcL (0.0-1.3); Monocytes % 6.7 %; Neutrophils # 4.8 K/mcL (1.6-8.9); Platelet Count 213 K/mcL (140-400); Red Blood Count 5.78 M/mcL (4.19-5.50); Red Cell Distribution Width 12.2 % (11.5-14.5); Segmented Neutrophils % 53.5 %; White Blood Count 8.9 K/mcL (4.3-11.1)
[2022-07-20 03:31] LABS: BUN/Creatinine Ratio 23 (6-26); Blood Urea Nitrogen 25 mg/dL (6-20); Calcium 8.9 mg/dL (8.6-10.3); Carbon Dioxide 23 mEq/L (23-29); Chloride 102 mEq/L (98-107); Glucose 295 mg/dL (70-105); Osmolality,Calculated 289 (280-300); Potassium 3.7 mEq/L (3.5-5.1); Sodium 132 mEq/L (136-145)
[2022-07-20 03:42] LABS: Chol/HDL Ratio 7.9 (0-4.9); Cholesterol 230 mg/dL (< 200); HDL Cholesterol 29 mg/dL (40-59); Triglycerides 803 mg/dL (< 150)
[2022-07-20 03:58] LABS: Estimated Average Glucose 180 mg/dl; Hemoglobin A1C 7.9 %
[2022-07-20] MEDS: Regadenoson 0.4 MG/5 ML SYRINGE IVP ONE ×2 (07:16→07:56)
[2022-07-20] MEDS ORDERED: ELETRIPTAN HBR 40 MG PO PRN (07:54)
[2022-07-20] MEDS: Topiramate 25 MG TABLET PO SCH ×2 (09:59→21:33)
[2022-07-20] MEDS: BuPROPion SR (12 HR) 100 MG TABLET PO SCH (09:59)
[2022-07-20] MEDS: Gabapentin 400 MG CAPSULE PO SCH (09:59)
[2022-07-20] MEDS: Insulin LISPRO 300 UNITS/3 ML VIAL SUBQ SCH ×4 (09:59→21:35)
[2022-07-20] MEDS: lisinopriL 20 MG TABLET PO SCH (09:59)
[2022-07-20] MEDS: Aspirin Enteric Coated 81 MG Tablet PO SCH (09:59)
[2022-07-20] MEDS: *HR* OxyCODONE/APAP 10/325 TABLET PO PRN (15:01)
[2022-07-20] MEDS ORDERED: Gabapentin 400 MG CAPSULE PO SCH (18:00)
[2022-07-20] MEDS ORDERED: rOPINIRole 1 MG TABLET PO SCH (21:00)
[2022-07-20] MEDS ORDERED: tiZANidine 4 MG TABLET PO SCH (21:00)
[2022-07-21 02:52] LABS: Basophils # 0.1 K/mcL (0.0-0.2); Basophils % 0.8 %; Eosinophils # 0.2 K/mcL (0.0-0.6); Hematocrit 48.4 % (37.5-50.1); Hemoglobin 16.4 g/dL (12.9-16.9); Immature Granulocytes % 0.5 % (0-4); Lymphocytes % 36.1 %; Mean Corpuscular HGB Conc 33.9 g/dL (31.6-35.5); Mean Corpuscular Hemoglobin 29.6 pg (28.0-33.3); Mean Corpuscular Volume 87.4 fL (83.0-100.0); Mean Platelet Volume 11.1 fL (9.4-12.4); Monocytes # 0.7 K/mcL (0.0-1.3); Monocytes % 8.8 %; Neutrophils # 4.3 K/mcL (1.6-8.9); Platelet Count 190 K/mcL (140-400); Red Blood Count 5.54 M/mcL (4.19-5.50); Red Cell Distribution Width 12.2 % (11.5-14.5); Segmented Neutrophils % 51.8 %; White Blood Count 8.4 K/mcL (4.3-11.1)
[2022-07-21 03:13] LABS: BUN/Creatinine Ratio 33 (6-26); Blood Urea Nitrogen 26 mg/dL (6-20); Calcium 8.9 mg/dL (8.6-10.3); Carbon Dioxide 21 mEq/L (23-29); Chloride 105 mEq/L (98-107); Glucose 232 mg/dL (70-105); Osmolality,Calculated 292 (280-300); Potassium 3.9 mEq/L (3.5-5.1); Sodium 135 mEq/L (136-145)
[2022-07-21] MEDS: Topiramate 25 MG TABLET PO SCH (08:40)
[2022-07-21] MEDS: Aspirin Enteric Coated 81 MG Tablet PO SCH (08:40)
[2022-07-21] MEDS: lisinopriL 20 MG TABLET PO SCH (08:40)
[2022-07-21] MEDS: Gabapentin 400 MG CAPSULE PO SCH (08:40)
[2022-07-21] MEDS: BuPROPion SR (12 HR) 100 MG TABLET PO SCH (08:40)
[2022-07-21] MEDS: Insulin LISPRO 300 UNITS/3 ML VIAL SUBQ SCH ×2 (08:41→11:54)
[2022-07-21] MEDS ORDERED: Insulin NPH/REG 70/30 100 UNIT/ML (x5UNIT) SUBQ SCH (09:00)
[2022-07-21] MEDS ORDERED: Cholecalciferol (D-3) 1,000 UNIT (25MCG) TABLET PO SCH (09:00)
[2022-07-21 11:28] VITALS: BP 97/61; PULSE 68; TEMP 98.1; O2SAT 96
[2022-07-21] MEDS: *HR* OxyCODONE/APAP 10/325 TABLET PO PRN (11:52)
== END 2022-07-21 17:15 | disposition home or self-care (01) ==
LOC: EMEROOARM 09:38 → 3BNU 09:38 → SUATTDRO 15:38 → 3BNU 16:34
PROVIDERS: ADMIT Internal Medicine; ATTEND Internal Medicine